=== PATIENT | female | born 1975 | race Caucasian/White ===

== ENCOUNTER 2022-10-17 06:48 | Inpatient (IN) | payer MEDICAID, SELFPAY ==
[2022-10-17] VITALS (47 sets, daily range): BP systolic 95–116; BP diastolic 66–87; PULSE 95–141; RESP 15–33; TEMP 36.7–37.1; O2SAT 92–100; BMI 18.0
--- NOTE | ~2022-10-17 | CT_ITS ---
EXAMINATION: CTA chest PE protocol DATE: 10/17/2022 11:52 INDICATION: Dyspnea. Asthma exacerbation. TECHNIQUE: Computed tomography angiography (CTA) of the chest was performed with 100 mL Omnipaque-350 intravenous contrast timed to evaluate the pulmonary arteries. Coronal maximum intensity projection 3D-reconstructions were created by the technologist. Automated exposure control and iterative reconst ruction technique were employed. The dose-length product was 143.49 mGy-cm. COMPARISON: Chest single view 10/17/2022 FINDINGS: There is mild scarring at the lung apices. There is mild emphysema. There is septal thicken ing in the lungs with an inferior predominance. There are peripheral airspace and groundglass opaciti es in all lobes. There is dependent atelectasis bilaterally. There are small pleural effusions. There is left atrial enlargement of the heart. There are coronary artery calcifications. There are calcifi cations of aortic valve. There is no pulmonary embolus. There is mediastinal and left hilar lymphaden opathy. For example, a node in the superior mediastinum measures 2.0 x 1.2 cm. There is moderate mid thoracic spondylosis. IMPRESSION: 1. Mild pulmonary edema. 2. Diffuse lung disease, likely mild pulmonary edema. 3. Small pleural effusions. 4. Mild emphysema. 5. Mediastinal and left hilar lymphadenopathy, likely reactive. Reviewed, dictated and finalized at location A. ER FEEDER
--- NOTE | ~2022-10-17 | XR_ITS ---
Portable chest x-ray Comparison: 10/10/2011 Clinical History: Dyspnea Findings: Lungs are clear, without focal consolidation or pleural effusion. Cardiomediastinal silho uette is stable. Bones and soft tissues are unremarkable. Impression: Clear lungs. Reviewed, dictated and finalized at location . ILE PROCESSING TECHNOLOGIST Impression: Clear lungs.
[2022-10-17] MEDS: ALBUTEROL SULFATE NEB 2.5 MG/3 ML INH 10 MG INHALATION (06:58)
[2022-10-17] MEDS: IPRATROPIUM BR 0.02% INH SOLN 0.5 MG/2.5 ML VIAL 1.5 MG INHALATION (06:58)
[2022-10-17] MEDS: MAGNESIUM SULF 2 GM/WATER 50ML 2 GM/50 ML BAG IVPB (07:02)
[2022-10-17] MEDS: methylPREDNISolone SOD SUCC 125 MG VIAL IV PUSH (07:02)
--- NOTE | 2022-10-17 07:17 | ED.ASTHMA ---
HPI - Asthma General Chief Complaint: Asthma Stated Complaint: Shortness of breath Time Seen by Provider: 10/17/22 07:16 Source: patient and family Mode of arrival: ambulatory Limitations: no limitations History of Present Illness HPI Narrative: 47 years old white female, presents with wheezing and coughing over the last 2 to 3 days. After working in the backyard. History of seasonal allergy and asthma, does not have any medication for asthma at home, last asthma symptoms over 9 years ago, she denies any fever, chills, nausea, vomiting, chest pain. Patient is a tobacco user Related Data Allergies Allergy/AdvReac Type Severity Reaction Status Date / Time cephalexin [Keflex] Allergy Intermediate Unknown Verified 10/17/22 06:57 Review of Systems Review of Systems: All systems reviewed & are unremarkable except as noted in HPI and below PMFSH Past Medical History Medical History (Updated 10/17/22 @ 15:42 by Nimo Sigala MD) Tobacco dependence Surgical History Surgical History (Updated 10/17/22 @ 15:34 by Stefany Webber PA-C) History of section Family History Family History (Updated 10/17/22 @ 15:35 by Stefany Webber PA-C) Mother Cervical cancer Social History Social History Social History: Surrogate medical decision maker: Justin Wilkerson, spouse. Code status: Full code. Smoking packs per day: 0.5 Smoking cigarettes per day: 10.0 Smoking status: Current every day smoker Alcohol intake: current Alcohol use details: Social alcohol use in moderation, perhaps 12 beers a month. Substance use: never Living arrangements: with family Additional living arrangements comments: Lives with spouse in [place]. 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 Exam Narrative: General appearance: Well-developed, well-nourished Skin: Normal color Head: Normocephalic, nontraumatic Eyes: Clear conjunctiva ENT: Oropharynx normal, ears normal, nose normal Neck: Supple, nontender Chest and respiratory: Currently patient on albuterol nebulizer treatment, slight diminution of air entry bilaterally, no wheezing or rhonchi Heart: Regular rate/rhythm Abdomen: Soft, nontender, no organomegaly, quiet bowel sounds Vascular: Normal peripheral pulses, normal capillary refill. Musculoskeletal: Normal range of motion, nontender back Neurologic: Alert and oriented ?3, RODEO PERFORMER is normal as tested, no gross motor deficit Course Consultations Consultation #1: Dr. Avila Date: 10/17/22 Time: 14:31 Vital Signs Vital signs: Vital Signs Temperature 36.8 C 10/17/22 06:53 Pulse Rate 139 H 10/17/22 06:53 Respiratory Rate 33 H 10/17/22 06:53 Blood Pressure 116/75 10/17/22 06:53 Pulse Oximetry 95 10/17/22 06:53 Oxygen Delivery Room Air 10/17/22 06:53 Temperature 37.1 C 10/17/22 08:55 Pulse Rate 138 H 10/17/22 08:55 Respiratory Rate 16 10/17/22 08:55 Blood Pressure 107/75 10/17/22 08:55 Pulse Oximetry 92 10/17/22 08:55 Oxygen Delivery Room Air 10/17/22 06:53 MDM - Asthma MDM Narrative Medical decision making narrative: Patient presents with asthma flare, does not have medicine at home, been working at the backyard recently which high likely triggered her asthma. She got better after receiving albuterol, Atrovent nebulizer, magnesium sulfate and Solu-Medrol. Patient will be discharged on prednisone, Symbicort and albuterol inhaler, excuse of work for 2 days. Differential Diagnosis Differential diagnosis: Likely Acute exacerbation and Acute asthmatic bronchitis Lab Data 10/17/22 10:06
--- NOTE | 2022-10-17 07:31 | PC.NURSE ---
Checked with Dr Sigala. Pt received 125 mg IV solumedrol this morning. No need for 60 mg prednisone PO at this time. Order discontinued.
[2022-10-17] MEDS: ONDANSETRON HCL ODT 4 MG TABLET PO (08:47)
--- NOTE | 2022-10-17 08:59 | PC.NURSE ---
Pt tachycardic, SpO2 92% on room air. MD aware. Delaying discharge at this time. Will continue to monitor
--- NOTE | 2022-10-17 09:17 | ECG_ITS ---
Measurements Intervals [place] Rate: 131 P: 32 [place]: 101 QRS: 63 QRSD: 96 T: 29 QT: 301 QTc: 444 Interpretive Statements SINUS OR ECTOPIC ATRIAL TACHYCARDIA WITH SHORT TX INTERVAL ATRIAL PREMATURE COMPLEX DELAYED PRECORDIAL R/S TRANSITION BORDERLINE ST-T WAVE ABNORMALITY- INF/HIGH LAT LEADS ABNORMAL ECG NO PREVIOUS ECG AVAILABLE FOR COMPARISON Electronically Signed On 10-17-2022 9:58:04 PRESENTATION SPECIALIST by Mikey Robb D.O.
--- NOTE | 2022-10-17 09:26 | PC.NURSE ---
MD aware of saturations between 88% and 91% on room air. New orders at this time, instructed not to place patient on oxygen until blood gases are obtained.
--- NOTE | 2022-10-17 09:40 | PC.NURSE ---
EKG completed, respiratory at bedside for blood gases.
[2022-10-17 09:50] LABS: Alveolar/Arterial O2 Gradient 60.6 mmHg; Base Excess ABG -4.9 mEq/l (+/-2.0); Fractional Inspired Oxygen 21 %; HCO3 ABG 17.7 mEq/l (22.0-26.0); Oxygen Saturation ABG 90.8 % (95.0-100.0); PCO2 ABG 27.2 mmHg (35.0-45.0); PO2 ABG 56.6 mmHg (80.0-100.0); Total Hemoglobin 14.6 g/dL (12.0-18.0); pH ABG 7.432 (7.350-7.450)
[2022-10-17 09:52] LABS: Modified Allen's Test Pass; Oxyhemoglobin 87.6 % THb (90.0-100.0); Site Drawn RIGHT RADIAL
--- NOTE | 2022-10-17 09:55 | PCRCNOTE ---
RT notified Nimo Sigala MD of ABG results. He stated to place patient on 2L NC. Patient is currently 92% on 2L NC. RN aware.
[2022-10-17 10:26] LABS: Alanine Aminotransferase 19 U/L (6-35); Albumin Level 4.5 g/dL (3.5-5.1); Alkaline Phosphatase 72 U/L (38-126); Anion Gap 8 mmol/L (8-16); Aspartate Amino Transferase 25 U/L (14-36); Basophils Percent Auto 0.1 % (0.2-1.2); Bilirubin,Total 0.6 mg/dL (0.2-1.3); Blood Urea Nitrogen 12 mg/dL (7-17); Calcium 8.6 mg/dL (8.4-10.2); Carbon Dioxide 20 mmol/L (22-30); Chloride 104 mmol/L (98-107); Estimated CRCL calculation 57 ml/min; Estimated Glomerular Filt Rate > 60; Glucose 215 mg/dL (65-110); Hematocrit 41.2 % (37.0-47.0); Hemoglobin 14.1 g/dL (12.0-15.0); Immature Granulocyte Absolute 0.03 K/mm3 (0.00-0.031); Immature Granulocyte Percent A 0.4 % (0-0.5); Immature Platelet Fraction Pct 7.4 % (0.9-11.2); Lymphocytes Absolute Auto 0.18 K/mm3 (0.9-3.2); Lymphocytes Percent Auto 2.4 % (18.3-44.2); Mean Corpuscular HGB Conc 34.2 g/dl (32-36); Mean Corpuscular Hemoglobin 29.5 pg (26-34); Mean Corpuscular Volume 86.2 fl (80-100); Mean Platelet Volume 11.2 fl (7.4-10.4); Monocytes Absolute Auto 0.1 K/mm3 (0.1-0.6); Monocytes Percent Auto 1.3 % (2.6-8.5); Neutrophils Absolute Auto 7.2 K/mm3 (1.3-6.7); Neutrophils Percent Auto 95.8 % (45.5-73.1); Platelet Count Result 129 k/mm3 (150-375); Potassium 3.7 mmol/L (3.4-5.0); Red Blood Count 4.78 M/mm3 (4.2-5.4); Red Cell Distribution Width 13.2 % (11.5-14.5); Sodium 132 mmol/L (137-145); White Blood Count 7.5 K/mm3 (4.5-10.0)
--- NOTE | 2022-10-17 11:00 | PC.NURSE ---
report received from Guillermina OSPINA at this time including history and physical and plan of care
[2022-10-17] MEDS: SODIUM CHLORIDE 0.9% IV 1,000 ML 999 ML IV CONT (12:07)
[2022-10-17] MEDS: FUROSEMIDE INJ 40 MG/4 ML VIAL IV PUSH (13:23)
[2022-10-17 14:20] LABS: NT Pro B Type Natriuretic Pept 13200 pg/mL (19.9-100)
--- NOTE | 2022-10-17 14:31 | ECG_ITS ---
Measurements Intervals [place] Rate: 114 P: 74 [place]: 149 QRS: 56 QRSD: 94 T: 118 QT: 331 QTc: 456 Interpretive Statements SINUS TACHYCARDIA LEFT ATRIAL ENLARGEMENT DELAYED PRECORDIAL R/S TRANSITION NONSPECIFIC ST & T-WAVE ABNORMALITY- INF/LAT LEADS BASELINE ARTIFACT- I, V3-V4 ABNORMAL ECG COMPARED TO ECG 10/17/2022 09:33:48 HEART RATE HAS DECREASED Electronically Signed On 10-17-2022 19:06:20 SIZING MACHINE OPERATOR by Mikey Robb D.O.
[2022-10-17 14:46] LABS: Partial Thromboplastin Time 25.7 SECONDS (22.3-36.8); Prothrombin Time 13.1 Seconds (11.1-14.7)
--- NOTE | 2022-10-17 15:00 | PM.IMHP ---
H&P: HPI History of Present Illness Date/Time: 10/17/22 15:00 Chief Complaint: Shortness of breath. Narrative: This is a very pleasant 47-year-old female smoker with history of childhood asthma who presented to the emergency department from home for evaluation of shortness of breath. Patient provides the following history. This past weekend she spent time doing yard work to include raking leaves and building a bonfire to burn said leaves. Later that night she was wakened from sleep with shortness of breath, wheezing, and dry cough. Shortness of breath is worse when lying supine and better when sitting upwards. An old inhaler perhaps helped her wheezing somewhat. Additionally she had some episodes of diffuse chest tightness and aching associated with shortness of breath yesterday with activity but that is not returned. She denies fever, chills, sweats, sinus congestion, runny nose, itchy and watery eyes, sore throat, paroxysmal nocturnal dyspnea, sensations of racing heart, and lower extremity edema. 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 She has no other sick contacts. No recent travel. No history of cardiac disease, dysrhythmia, or valvular heart disease. No family history of premature coronary artery disease. No history of thyroid disease. Weight has remained stable. No significant caffeine or alcohol use. She denies illicit substance use. She was afebrile on arrival to the emergency department with stable blood pressures. She has been persistently tachycardic in the 1 teens. Pertinent labs include a WBC of 7.5, platelets 129, sodium 132, potassium 3.7, BUN 12, creatinine 0.80, glucose 215, proBNP 58212, troponin 0.130. Chest CTA showed mild pulmonary edema, diffuse lung disease which is likely related to pulmonary edema, small effusions, mild emphysema, and likely reactive mediastinal and left hilar lymphadenopathy. She tested positive for COVID. In the ED she was given a nebulizer treatment, 2 g of magnesium sulfate, 125 mg IV Solu-Medrol, and 40 mg IV Lasix. She is being admitted in this setting for further workup of what appears to be new onset CHF. Review of Systems Review of Systems: Twelve systems were reviewed. Weight has remained stable. No exertional chest pain. She denies nausea and vomiting. No sweats. No syncope or near syncope. Except as documented, all other systems were reviewed and are negative. [facility] Past Medical History Medical History Tobacco dependence Surgical History Surgical History History of section Family History Family History Mother Cervical cancer Father PVD (peripheral vascular disease) Resulting in bilateral amputations Sibling DVT (deep venous thrombosis) Sister had blood clots in her legs Social History Social History Social History: Surrogate medical decision maker: Justin Wilkerson, spouse. Code status: Full code. Smoking packs per day: 0.5 Smoking cigarettes per day: 10.0 Smoking status: Current every day smoker Tobacco type: cigarettes Alcohol intake: current Drinks per week: 12 Alcohol use details: Social alcohol use in moderation, perhaps 12 beers a month. Substance use: never Lack of Transportation: No Lack of Food: Never True Current Housing: I Have Housing Concerned About Future Housing: No Difficulty Paying Gas/Electric Bills: No Difficulty Paying for Meds: No Currently Unemployed: No Education: High School Diploma/GED Difficulty w/ Childcare or Family Care: No Living arrangements: with family Additional living arrangements comments: Lives with spouse in [place]. 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
[2022-10-17 15:05] LABS: SARS-CoV-2 RNA PCR Positive
--- NOTE | 2022-10-17 16:00 | PM.CNCAR ---
Assessment and Plan Assessment and plan (1) Acute systolic CHF (congestive heart failure): Code(s): I50.21 - Acute systolic (congestive) heart failure Status: Acute Assessment and Plan: patient presents with acute CHF and COVID infection. This may be due to some pre-existing illness such as valve disease or CAD which has been it exacerbated by the physiologic stress of COVID (tachycardia, hypoxia). She may also have a COVID related problems such as myocarditis. improved with Lasix and other treatments. Agree with Furosemide 20 mg IV push b.i.d.; she does not look very volume overloaded and likely she will not need many doses. Daily BMP echo is pending; further recommendations to follow. (2) Cardiac murmur: Code(s): R01.1 - Cardiac murmur, unspecified Status: Acute Assessment and Plan: Pt has a heart murmur consistent with aortic stenosis. This would be unusual in this age range although bicuspid valve is a possibility. HoCM is less likely. Echo pending (3) Elevated troponin: Code(s): R77.8 - Other specified abnormalities of plasma proteins Status: Acute Assessment and Plan: Patient had some chest tightness, as significantly elevated troponin of up to 1.5 so far, and some inferolateral ST segment depression. Suspect this is myocardial injury secondary to physiologic stress (tachycardia, hypoxia), doubt ACS. Patient does have coronary artery calcifications some may have underlying CAD. Echo pending EKG in the morning Check lipids Consider starting a statin Possible ischemia evaluation or coronary CTA, perhaps as an outpatient, depending on pt's course. (4) COVID-19 virus infection: Code(s): U07.1 - COVID-19 Status: Acute Assessment and Plan: Patient presents with COVID infection and respiratory failure. History of asthma. Improved with oxygen, furosemide, steroids, updrafts etc.. (5) Tobacco dependence: Code(s): F17.200 - Nicotine dependence, unspecified, uncomplicated Status: Acute Assessment and Plan: Tobacco cessation is encouraged. History of Present Illness History of Present Illness Consult date/time: 10/17/22 16:00 Reason For Visit: Acute Hypoxic Respiratory Failure, CHF Narrative: Trinidad Wilkerson is a 47 female whom I was asked to see at the request of CHAS Webber for my advice and opinion regarding her new onset of CHF, in consultation. History of asthma and smoking. The patient Was exposed to a sick grandson on Friday. On Friday she started having problems with coughing, wheezing and shortness of breath. She also had some PND and orthopnea. She was having problems with soreness, aching and pressure around the lower rib area of radiating to the back and right scapula particularly with activity when she got very short of breath. Inhalers helped a little. She came to the emergency room today () and was found to be hypoxic, tachycardic and COVID positive. Her troponins were 0.130 and 1.480, proBNP 13,200, white count normal, platelet count 122K, and CT suggested CHF. She was given a nebulizer treatment, magnesium sulfate, IV steroids and Lasix 40 mg IV push and was admitted to IMU. The patient states that she has been very healthy has not seen a doctor since her mammogram at the age of 38.. She does carry firewood at times and recently she felt like her legs were weak carrying wood; she assumed that she had been inactive and out of shape over the winter. She denies any history of exertional chest pressure or tightness and denies any history of heart murmur. No hypertension, diabetes or elevated cholesterol, or family history of premature CAD, but does smoke. Review of Systems Constitutional: Constitutional: Reports difficulty sleeping (orthopnea), Reports fatigue and Denies fever(s) ENT: Denies nasal congestion Cardiovascular: Cardiovascular: Reports chest archana
--- NOTE | 2022-10-17 16:11 | ADMGEN ---
This patient, Trinidad Wilkerson, was admitted to IMU Room 207-01. Patient/family oriented to hospital policies and general routines including ID bracelet, bed and alarms, visiting hours, pain management, procedures, bathroom and other care routines, personal items, smoking policy, room service/diet, and visiting hours. Information on how to activate the Rapid Response Team has been discussed. Patient/Family are encouraged to report perceived risks to care and to ask questions if they do not understand what they are told or what they should do.
[2022-10-17] MEDS: ENOXAPARIN 60 MG/0.6 ML SYRINGE 50 MG SUB-Q (17:39)
[2022-10-17] MEDS: FUROSEMIDE INJ 40 MG/4 ML VIAL 20 MG IV PUSH (20:42)
[2022-10-17] MEDS: REMDESIVIR 200 MG/NS 250 ML 200 MG/250 ML BAG 250 MG IVPB (22:21)
[2022-10-17] MEDS: METOPROLOL TARTRATE 25 MG TABLET PO (22:21)
[2022-10-17 22:30] LABS: Hemoglobin A1C 4.7 % (<5.7)
[2022-10-18] VITALS (22 sets, daily range): BP systolic 92–121; BP diastolic 61–88; PULSE 73–98; RESP 14–22; TEMP 36.1–37.1; O2SAT 92–100
[2022-10-18 05:02] LABS: Hematocrit 40.1 % (37.0-47.0); Hemoglobin 14.2 g/dL (12.0-15.0); Immature Platelet Fraction Pct 8.9 % (0.9-11.2); Mean Corpuscular HGB Conc 35.4 g/dl (32-36); Mean Corpuscular Hemoglobin 30.3 pg (26-34); Mean Corpuscular Volume 85.5 fl (80-100); Mean Platelet Volume 11.5 fl (7.4-10.4); Platelet Count Result 139 k/mm3 (150-375); Red Blood Count 4.69 M/mm3 (4.2-5.4); Red Cell Distribution Width 13.3 % (11.5-14.5); White Blood Count 8.9 K/mm3 (4.5-10.0)
[2022-10-18 05:13] LABS: Anion Gap 6 mmol/L (8-16); Blood Urea Nitrogen 17 mg/dL (7-17); Calcium 7.7 mg/dL (8.4-10.2); Carbon Dioxide 23 mmol/L (22-30); Chloride 105 mmol/L (98-107); Cholesterol 223 mg/dL (0-200); Estimated CRCL calculation 53 ml/min; Estimated Glomerular Filt Rate > 60; Glucose 108 mg/dL (65-110); HDL Direct 52 mg/dL; Magnesium 2.4 mg/dL (1.6-2.3); Potassium 4.1 mmol/L (3.4-5.0); Sodium 134 mmol/L (137-145); Triglycerides 99 mg/dL (<150)
[2022-10-18 05:23] LABS: LDL Cholesterol Direct 127 mg/dL
[2022-10-18 05:47] LABS: INR 1.1; Prothrombin Time 13.3 Seconds (11.1-14.7)
--- NOTE | 2022-10-18 08:00 | ECG_ITS ---
Measurements Intervals [place] Rate: 84 P: -44 [place]: 137 QRS: 76 QRSD: 89 T: 229 QT: 386 QTc: 457 Interpretive Statements ECTOPIC ATRIAL RHYTHM ST-T WAVE ABNORMALITY IN ANTEROLATERAL LEADS- CONSIDER ISCHEMIA ABNORMAL ECG COMPARED TO ECG 10/17/2022 15:08:45 ECTOPIC ATRIAL RHYTHM NOW PRESENT ST-T WAVE ABNORMALITY NOW PRESENT Electronically Signed On 10-18-2022 16:18:36 OUTBOARD MOTOR TESTER by Mikey Robb D.O.
[2022-10-18 08:45] LABS: Glucose Point of Care 110 mg/dl (65-105)
[2022-10-18] MEDS: METOPROLOL TARTRATE 25 MG TABLET PO (09:37)
[2022-10-18] MEDS: ASPIRIN 81 MG CHEWABLE TABLET PO (09:38)
[2022-10-18] MEDS: DEXAMETHASONE 2 MG TABLET 6 MG PO (09:38)
[2022-10-18] MEDS: FUROSEMIDE INJ 40 MG/4 ML VIAL 20 MG IV PUSH (09:39)
--- NOTE | 2022-10-18 10:26 | PM.PNCARD ---
Progress Note: A&P Assessment and Plan (1) Acute systolic CHF (congestive heart failure): Code(s): I50.21 - Acute systolic (congestive) heart failure Status: Acute Assessment and Plan: Patient presents with acute CHF and COVID infection.? This may be due to some pre-existing illness such as valve disease or CAD which has been exacerbated by the physiologic stress of COVID (tachycardia, hypoxia).? She may also have a COVID related problems such as myocarditis. Improved with Lasix and other treatments. ?Agree with Furosemide 20 mg IV push BID; she does not look very volume overloaded and likely she will not need many doses. ?Daily BMP ?Echo is pending; further recommendations to follow. (2) NSTEMI (non-ST elevated myocardial infarction): Code(s): I21.4 - Non-ST elevation (NSTEMI) myocardial infarction Status: Acute Assessment and Plan: Troponin now up to 12. Patient without chest pain. Given degree of troponin elevation, recommended cardiac cath. Discussed the procedure details with the patient, including risks vs benefits, alternative management. Patient agrees for cath. Will perform cath today. Patient to remain NPO for procedure. Further recommendations pneding results of cath. (3) COVID-19: Code(s): U07.1 - COVID-19 Status: Acute Assessment and Plan: Management as per Hospitalist. (4) Cardiac murmur: Code(s): R01.1 - Cardiac murmur, unspecified Status: Acute Assessment and Plan: Pt has a heart murmur consistent with aortic stenosis.? This would be unusual in this age range although bicuspid valve is a possibility.? HoCM is less likely. Echo pending (5) Tobacco dependence: Code(s): F17.200 - Nicotine dependence, unspecified, uncomplicated Status: Acute Assessment and Plan: Tobacco cessation is encouraged. Subjective Date/time seen: 10/18/22 10:26 Interval history: Reason for visit: Acute congestive heart failure, NSTEMI HPI: Trinidad Wilkerson is a 47 female whom I was asked to see at the request of CHAS Webber for my advice and opinion regarding her new onset of CHF, in consultation.? History of asthma and smoking. The patient was exposed to a sick grandson on Friday.? On Friday she started having problems with coughing, wheezing and shortness of breath.? She also had some PND and orthopnea.? She was having problems with soreness, aching and pressure around the lower rib area of radiating to the back and right scapula particularly with activity when she got very short of breath.? Inhalers helped a little.? She came to the emergency room today () and was found to be hypoxic, tachycardic and COVID positive.? Her troponins were 0.130 and 1.480, proBNP 13,200, white count normal, platelet count 122K, and CT suggested CHF.? She was given a nebulizer treatment, magnesium sulfate, IV steroids and Lasix 40 mg IV push and was admitted to IMU. The patient states that she has been very healthy has not seen a doctor since her mammogram at the age of 38. She does carry firewood at times and recently she felt like her legs were weak carrying wood; she assumed that she had been inactive and out of shape over the winter.? She denies any history of exertional chest pressure or tightness and denies any history of heart murmur.? No hypertension, diabetes or elevated cholesterol, or family history of premature CAD, but does smoke. Date of service: No acute events overnight. Patient states she is feeling much better this morning. Denies any chest pain. Troponin now up to 12. Review of Systems Review of Systems: 8 point ROS obtained. Negative, unless stated in HPI. Exam Const: General: comfortable and no acute distress Orientation/consciousness: oriented to person, patient oriented x3 and No confusion Other: Pleasant middle-aged female, not in distress HENMT: Mouth: Yes moist mucous membranes Eyes: General: appearance normal, both eyes an
[2022-10-18 10:33] LABS: Alanine Aminotransferase 22 U/L (6-35)
--- NOTE | 2022-10-18 10:33 | WPDMODSED ---
Moderate Sedation Note-Pt Data Patient Data Diagnosis: NSTEMI Present Complaint: NSTEMI Procedure to be performed/Plan: Coronary angiography, LHC, +/- PCI Allergies Allergy/AdvReac Type Severity Reaction Status Date / Time cephalexin [Keflex] Allergy Intermediate Unknown Verified 10/17/22 06:57 Home Medications Medication Instructions Recorded Confirmed Type No Home Medications 10/17/22 10/17/22 History Current Medications: Active Medications Acetaminophen (Acetaminophen 325 Mg Tablet) 650 mg PO Q6H PRN PRN Reason: Mild Pain (1-3) or Fever Aspirin (Aspirin 81 Mg Chewable Tablet) 81 mg PO DAILY@0800 [facility] Last Admin: 10/18/22 09:38 Dose: 81 mg Dexamethasone (Dexamethasone 2 Mg Tablet) 6 mg PO DAILY@0800 [facility] Stop: 10/27/22 08:01 Last Admin: 10/18/22 09:38 Dose: 6 mg Dextrose (Dextrose 50% 25 Gm/50 Ml Syringe) 12.5 gm IV PUSH PRN PRN; Protocol PRN Reason: Hypoglycemia Furosemide (Furosemide Inj 40 Mg/4 Ml Vial) 20 mg IV PUSH Q12HR [facility] Last Admin: 10/18/22 09:39 Dose: 20 mg Glucagon (Glucagon For Inj 1 Mg Vial) 1 mg IM PRN PRN; Protocol PRN Reason: Hypoglycemia Glucose (Glucose Oral Gel 15 Gm Of Glucse In 37.5 Gm Tube) 15 gm PO PRN PRN; Protocol PRN Reason: Hypoglycemia Acetaminophen (Ofirmev 1,000 Mg Ivpb) 1,000 mg in 100 mls @ 400 mls/hr IVPB Q6H PRN PRN Reason: Mild Pain (1-3) or Fever Stop: 10/18/22 13:50 Last Infusion: 10/17/22 20:55 Dose: Infused Dextrose (Dextrose 5% 1,000 Ml) 1,000 mls @ 100 mls/hr IVPB PRN PRN; Protocol PRN Reason: Hypoglycemia Remdesivir () 100 mg in 250 mls @ 250 mls/hr IVPB Q24H [facility] Stop: 10/21/22 22:59 Insulin Aspart (Insulin Aspart (*Bkc) 100 Units/Ml) 2 - 5 units SUB-Q TIDWM [facility]; Protocol Last Admin: 10/18/22 09:27 Dose: Not Given Metoprolol Tartrate (Metoprolol Tartrate 25 Mg Tablet) 25 mg PO Q8HR [facility] Last Admin: 10/18/22 09:37 Dose: 25 mg Ondansetron HCl (Ondansetron Inj 4 Mg/2 Ml Vial) 4 mg IV PUSH Q4H PRN PRN Reason: Nausea Perflutren Lipid Microsphere (Perflutren Lipid Microspheres 1.5 Ml Vial Diluted To 10 Ml Total Volume) 0 ml IV PUSH ONCE PRN; Protocol PRN Reason: adequate visualization Stop: 10/19/22 15:19 Sedation/Anesthesia: No previous sedation/anesthesia problems (including family history). [facility] Past Medical History Medical History Tobacco dependence Surgical History Surgical History History of section Family History Family History Mother Cervical cancer Father PVD (peripheral vascular disease) Resulting in bilateral amputations Sibling DVT (deep venous thrombosis) Sister had blood clots in her legs Social History Social History Social History: Surrogate medical decision maker: Justin Wilkerson, spouse. Code status: Full code. Smoking packs per day: 0.5 Smoking cigarettes per day: 10.0 Smoking status: Current every day smoker Tobacco type: cigarettes Alcohol intake: current Drinks per week: 12 Alcohol use details: Social alcohol use in moderation, perhaps 12 beers a month. Substance use: never Lack of Transportation: No Lack of Food: Never True Current Housing: I Have Housing Concerned About Future Housing: No Difficulty Paying Gas/Electric Bills: No Difficulty Paying for Meds: No Currently Unemployed: No Education: High School Diploma/GED Difficulty w/ Childcare or Family Care: No Living arrangements: with family Additional living arrangements comments: Lives with spouse in [place]. 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 concerns: No Mod Sed Physical Exam Physical Exam Pre Procedural Exam: Normal: Appearance, Heart Rate, Heart Rhythm, Neuro Exam, Abdomen, Extremities
--- NOTE | 2022-10-18 10:35 | WPDCARDPROC ---
Cardiac Cath Procedure Note Date of procedure:: 10/18/22 Performing physician:: CATHETERIZATION LABORATORY REPORT Procedure Date: 10/18/2022 Meter Calibrator: Manjeet John M.D., [facility]? Referring Physician: Dr. John ? Anesthesia: Versed and Fentanyl were ordered and given in my presence at 11:05, procedure ended at 11:36. Supervision of nurse monitored moderate sedation with Versed and Fentanyl was provided for 31 minutes. Total of Versed 0.5mg and Fentanyl 25mcg were administered by the Press Tender [employer] Goods RN Augustina Bynum. Pre-op Diagnosis: Coronary artery disease Post-op Diagnosis: Nonobstructive coronary arteries Procedure(s): 1. Moderate sedation 2. Ultrasound-guided access of the right common femoral artery 3. Coronary angiography 4. Angioseal closure of the right common femoral artery Access Site: Right common femoral artery Brief History and Clinical Indications: Patient is a 47-year-old female who is referred for [facility] for NSTEMI All risks, benefits and alternatives to left heart catheterization with or without percutaneous coronary intervention was discussed at length with the patient. Risk of complications including but not limited to bleeding, infection, arrhythmia, stroke, worsening kidney function, blood loss, groin hematoma, limb loss, emergency coronary artery bypass grafting, and even were discussed with the patient and all questions were answered. The patient understood and wished to proceed. Time out called, patient name, date of , medical record number, allergies, procedure performed, identify Meter Calibrator, patient and staff member concurred with accurate data, procedure carried on. Findings: LEFT HEART CATHETERIZATION FINDINGS: 1. Left main: The left main coronary artery is widely patent without any significant obstructive disease. 2. Left anterior descending: The ostium of the LAD has very mild 10-20% disease. Otherwise, rest of the LAD and the diagonal branches have mild luminal irregularities without any significant obstructive angiographic disease. 3. Left circumflex: The left circumflex artery and the main marginal branches have mild luminal irregularities without any significant obstructive angiographic disease. 4. Right coronary artery: The RCA has mild luminal irregularities without any significant obstructive angiographic disease. The RCA is the dominant vessel. Catheter-induced spasm noted of the proximal RCA - this resolved after catheter was pulled back. 5. Left ventricle: Unable to cross the aortic valve. Description of Procedure: Informed consent signed and placed in the chart. Patient transferred to laborer yard room. Prepped and aped in usual sterile fashion. 2% lidocaine in right groin area. Micropuncture needle used to access right common femoral artery with Seldinger technique under fluoroscopic guidance. J wire advanced, micropuncture cannula placed. Right iliofemoral angiogram performed, access confirmed and micropuncture cannula exchanged for 5-FR sheath. 5F FL4 diagnostic catheter engaged Left Main Coronary Artery. 5F FR4 diagnostic catheter engaged Right Coronary Artery. Multiple orthogonal angiogram obtained and reviewed. Attempted to cross the aortic valve with a 5F Pigtail diagnostic catheter and 5F FR4 diagnostic catheter, unable to cross. Hemostasis was achieved by 6F Angioseal. ? Assessment: Nonobstructive coronary arteries Post Operative Condition: Stable No significant blood loss Disposition: Floor Plan: The patient will be monitored in the recovery area. The above findings were discussed with the referring physician. Continue aggressive medical therapy and risk factor modification. ? Manjeet John M.D. Interventional Cardiology
--- NOTE | 2022-10-18 11:55 | PM.IMPN ---
Progress Note: A&P Assessment and Plan (1) Acute respiratory failure with hypoxia: Code(s): J96.01 - Acute respiratory failure with hypoxia Status: Acute (2) Congestive heart failure: Code(s): I50.9 - Heart failure, unspecified Status: Acute Assessment and Plan: Echo pending. (3) Cardiac murmur: Code(s): R01.1 - Cardiac murmur, unspecified Status: Acute (4) COVID-19: Code(s): U07.1 - COVID-19 Status: Acute (5) Elevated troponin: Code(s): R77.8 - Other specified abnormalities of plasma proteins Status: Acute Assessment and Plan: Going to labourers (6) Tobacco dependence: Code(s): F17.200 - Nicotine dependence, unspecified, uncomplicated Status: Acute (7) Hyperglycemia: Code(s): R73.9 - Hyperglycemia, unspecified Status: Acute Subjective Date/time seen: 10/18/22 11:55 Troponin elevated. Going to labourers today Exam Narrative: General: Thin, nontoxic-appearing female sitting up in bed. Weight: 48.6 kg. BMI: 17.3. HEENT: Normocephalic, atraumatic. PERRL, EOMI. Sclera anicteric. Oral mucosa moist. Oropharynx clear. Neck: Supple. No significant JVD. Bilateral bruits versus more likely transmitted murmur. Respiratory: Respirations are nonlabored. She is speaking in full sentences. Diminished lung sounds at the bases with crackles. Cardiovascular: Tachycardic with S1-S2. 3/6 systolic murmur at the right upper sternal border to the carotids. Gastrointestinal: Abdomen is soft, flat, nontender, and nondistended with positive bowel sounds. Skin: Warm and dry. No rash or lesions on limited exam. Extremities: No cyanosis, clubbing, or edema. Radial and pedal pulses intact. Neurological: Alert. Cranial nerves 2-12 are grossly intact. No gross focal deficits to casual conversation. Psychiatric: Pleasant and cooperative with normal mood and affect. Judgment and insight intact. Objective Data Vital Signs Vital Signs: Vital Signs - 24 hr 10/17/22 11:58 10/17/22 12:08 10/17/22 12:27 Temperature Pulse Rate 118 H 120 H 122 H Respiratory Rate 21 H Blood Pressure Pulse Oximetry 98 97 96 Oxygen Delivery Oxygen Flow Rate 10/17/22 12:30 10/17/22 12:45 10/17/22 13:00 Temperature Pulse Rate 124 H 129 H 131 H Respiratory Rate Blood Pressure Pulse Oximetry 97 94 92 Oxygen Delivery Oxygen Flow Rate 10/17/22 13:27 10/17/22 13:30 10/17/22 13:31 Temperature Pulse Rate 129 H 130 H 127 H Respiratory Rate Blood Pressure 97/83 L Pulse Oximetry 93 94 93 Oxygen Delivery Oxygen Flow Rate 10/17/22 13:48 10/17/22 14:10 10/17/22 14:22 Temperature Pulse Rate 119 H 118 H 118 H Respiratory Rate 20 Blood Pressure Pulse Oximetry 94 96 94 Oxygen Delivery Oxygen Flow Rate 10/17/22 14:43 10/17/22 14:45 10/17/22 15:00 Temperature Pulse Rate 116 H 116 H 110 H Respiratory Rate 21 H 20 19 Blood Pressure Pulse Oximetry 96 99 98 Oxygen Delivery Oxygen Flow Rate 10/17/22 15:01 10/17/22 15:15 10/17/22 15:30 Temperature Pulse Rate 115 H 128 H 122 H Respiratory Rate 26 H 19 24 H Blood Pressure Pulse Oximetry 98 97 100 Oxygen Delivery Oxygen Flow Rate 10/17/22 15:31 10/17/22 16:07 10/17/22 18:00 Temperature Pulse Rate 122 H 112 H Respiratory Rate 23 H Blood Pressure 105/87 Pulse Oximetry 100 100 Oxygen Delivery Nasal Cannula Oxygen Flow Rate 2 10/17/22 16:00 10/17/22 20:00 10/17/22 20:00 Temperature 98.0 F Pulse Rate 131 H 114 H 111 H Respiratory Rate 20 Blood Pressure 95/67 L Pulse Oximetry 98 Oxygen Delivery Oxygen Flow Rate 10/17/22 20:00 10/17/22 22:00 10/17/22 22:21 Temperature Pulse Rate 111 H 95 96 Respiratory Rate 20 Blood Pressure Pulse Oximetry 98 Oxygen Delivery Nasal Cannula Oxygen Flow Rate 4 10/18/22 00:00 10/18/22 00:00 10/18/22 00:00 [place]
[2022-10-18] MEDS: SODIUM CHLORIDE 0.9% IV 1,000 ML 125 ML IV CONT (13:00)
[2022-10-18 13:57] LABS: Glucose Point of Care 141 mg/dl (65-105)
--- NOTE | 2022-10-18 15:19 | ECHO_ITS ---
Patient Info Name: Trinidad Wilkerson Age: 47 years : 1975 Gender: Female Ht: 66 in Wt: 107 lbs BSA: 1.49 m2 HR: 86 bpm BP: 95 / 61 mmHg Heart Rhythm: Sinus Rhythm Technical Quality: Fair Exam Date: 10/18/2022 10:32 AM Exam Location: [facility] Pulmonary Patient Status: Inpatient Admit Date: 10/17/2022 Staff Ordering Physician: Stefany Webber PA-C Garment Tag Stringer: Andreina Castillo RDCS Attending Provider: Roselyn Zamorano DO Referring Physician: Lawanda GAN; Exam Type: CA echo doppler color flow Study Info Indications - USB murmur, tachycardfia, pulmonary edema Complete two-dimensional, color flow and Doppler transthoracic echocardiogram is performed. Summary 1. Complete two-dimensional, color flow and Doppler transthoracic echocardiogram is performed. 2. Left ventricular chamber dimension is normal. 3. Left ventricular systolic function is moderately reduced, estimated at 35-40%. 4. The left ventricular diastolic function is grade III diastolic dysfunction. 5. Right ventricular systolic function is normal. 6. The aortic valve is not well visualized. 7. There is moderate aortic valve calcification. 8. There is severe aortic valve stenosis with a peak velocity of 471 cm/s, mean gradient of 57 mmHg, and aortic valve area of 0.4 cm2. 9. The mitral valve annulus is mildly calcified. 10. The mitral valve has thickened leaflets. 11. There is moderate mitral valve regurgitation. 12. Normal inferior vena cava with >50% collapse upon inspiration consistent with normal right atrial pressure, 3 mmHg. Left Ventricle Left ventricular chamber dimension is normal. Left ventricular systolic function is moderately reduced, estimated at 35-40%. There is no increased left ventricular wall thickness. The left ventricular diastolic function is grade III diastolic dysfunction. Right Ventricle Right ventricular chamber dimension is normal. Right ventricular systolic function is normal. Left Atria Left atrial chamber dimension is normal. Right Atria Right atrial chamber dimension is normal. Atrial Septum Intact interatrial septum visualized by color flow imaging. Aortic Valve The aortic valve is not well visualized. There is severe aortic valve stenosis with a peak velocity of 471 cm/s, mean gradient of 57 mmHg, and aortic valve area of 0.4 cm2. There is no aortic valve regurgitation. There is moderate aortic valve calcification. Pulmonic Valve The pulmonic valve is not well visualized. Mitral Valve The mitral valve has thickened leaflets. There is moderate mitral valve regurgitation. The mitral valve annulus is mildly calcified. Tricuspid Valve There is trace tricuspid valve regurgitation. Pericardium/Pleural Left pleural effusion present. There is small pericardial effusion. Inferior Vena Cava Normal inferior vena cava with >50% collapse upon inspiration consistent with normal right atrial pressure, 3 mmHg. Aorta The aortic root size at the sinus of Valsalva is normal. Left Ventricular Outflow Tract Name Value Normal LVOT 2D LVOT Diameter 2.0 cm LVOT Doppler LVOT Pea
[2022-10-18 17:31] LABS: Glucose Point of Care 214 mg/dl (65-105)
--- NOTE | 2022-10-18 17:52 | SUR.PHASEII ---
Addendum entered by Augustina Bynum RN 10/18/22 17:54: No new orders were given after discussion with Dr. John. Original Note: 2403 Dr. John informed that patient's right pedal pulse was now difficult to palpate and faint on doppler and b/l feet cold but legs warm and cap refill delayed. Patient denied numbness or pain to right left. Dr. John reports she had weak pulses prior to cath and came to examine patient around approximately 1316.
[2022-10-18] MEDS: EMPAGLIFLOZIN 10 MG TABLET PO (18:23)
[2022-10-18] MEDS: REMDESIVIR 100 MG/NS 250 ML 100 MG/250 ML BAG 250 MG IVPB (21:57)
[2022-10-18 22:16] LABS: Glucose Point of Care 130 mg/dl (65-105)
[2022-10-19] VITALS (9 sets, daily range): BP systolic 107–130; BP diastolic 65–76; PULSE 72–89; RESP 16–20; TEMP 36.3–36.9; O2SAT 92–99
[2022-10-19 04:52] LABS: INR 1.1; Prothrombin Time 13.3 Seconds (11.1-14.7)
[2022-10-19 04:55] LABS: Alanine Aminotransferase 20 U/L (6-35); Anion Gap 7 mmol/L (8-16); Blood Urea Nitrogen 22 mg/dL (7-17); Calcium 7.6 mg/dL (8.4-10.2); Carbon Dioxide 18 mmol/L (22-30); Chloride 105 mmol/L (98-107); Estimated CRCL calculation 67 ml/min; Estimated Glomerular Filt Rate > 60; Glucose 91 mg/dL (65-110); Sodium 130 mmol/L (137-145)
[2022-10-19 07:54] LABS: Glucose Point of Care 104 mg/dl (65-105)
[2022-10-19] MEDS: ASPIRIN 81 MG CHEWABLE TABLET PO (08:16)
[2022-10-19] MEDS: DEXAMETHASONE 2 MG TABLET 6 MG PO (08:18)
[2022-10-19] MEDS: METOPROLOL SUCCINATE EXT REL 25 MG TABCR PO (08:18)
[2022-10-19] MEDS: EMPAGLIFLOZIN 10 MG TABLET PO (08:19)
--- NOTE | 2022-10-19 10:59 | PM.DS ---
DS: Admitting Diagnosis Discharge Date October 19, 2022 Admitting Diagnosis Hypoxic respiratory failure DS: Discharge Diagnosis Discharge Diagnosis (1) Acute respiratory failure with hypoxia: Code(s): J96.01 - Acute respiratory failure with hypoxia Status: Acute (2) Congestive heart failure: Code(s): I50.9 - Heart failure, unspecified Status: Acute Assessment and Plan: Echo pending. (3) Cardiac murmur: Code(s): R01.1 - Cardiac murmur, unspecified Status: Acute (4) COVID-19: Code(s): U07.1 - COVID-19 Status: Acute (5) Elevated troponin: Code(s): R77.8 - Other specified abnormalities of plasma proteins Status: Acute Assessment and Plan: Going to cardiac cath technician (6) Tobacco dependence: Code(s): F17.200 - Nicotine dependence, unspecified, uncomplicated Status: Acute (7) Hyperglycemia: Code(s): R73.9 - Hyperglycemia, unspecified Status: Acute DS: Summary Hospital Course Hospital Course: Patient came for shortness of breast found have COVID and also upon evaluation elevated troponin. Patient cardiac cath technician denies any coronary disease however she has significant reduced ejection fraction. Patient was given a couple doses of diuretics however her breathing is much improved. Will not need any treatment for COVID on discharge. She will need a follow-up with Cardiology. Beta-dalton and Jardiance started. Time Spent with Patient Time attestation: Total time spent providing and/or coordinating discharge services: Exam Narrative: General: Thin, nontoxic-appearing female sitting up in bed. Weight: 48.6 kg. BMI: 17.3. HEENT: Normocephalic, atraumatic. PERRL, EOMI. Sclera anicteric. Oral mucosa moist. Oropharynx clear. Neck: Supple. No significant JVD. Bilateral bruits versus more likely transmitted murmur. Respiratory: Respirations are nonlabored. She is speaking in full sentences. Diminished lung sounds at the bases with crackles. Cardiovascular: Tachycardic with S1-S2. 3/6 systolic murmur at the right upper sternal border to the carotids. Gastrointestinal: Abdomen is soft, flat, nontender, and nondistended with positive bowel sounds. Skin: Warm and dry. No rash or lesions on limited exam. Extremities: No cyanosis, clubbing, or edema. Radial and pedal pulses intact. Neurological: Alert. Cranial nerves 2-12 are grossly intact. No gross focal deficits to casual conversation. Psychiatric: Pleasant and cooperative with normal mood and affect. Judgment and insight intact. DS: Data Data Completed and Pending Labs on day of discharge: Labs from last 24 hours 10/19/22 10/19/22 10/19/22 07:48 04:18 04:18 PT 13.3 INR 1.1 Sodium 130 L Potassium 4.0 Chloride 105 Carbon Dioxide 18 L Anion Gap 7 L BUN 22 H Creatinine 0.70 Estim Creat Clear Calc 67 Estimated GFR > 60 Glucose 91 POC Capillary Glucose 104 Calcium 7.6 L ALT 20 10/18/22 10/18/22 10/18/22 22:09 17:22 13:50 PT INR Sodium Potassium Chloride Carbon Dioxide Anion Gap BUN Creatinine Estim Creat Clear Calc Estimated GFR Glucose POC Capillary Glucose 130 H 214 H 141 H Calcium ALT Discharge Plan Discharge Attending physician on discharge: Aftab Bojorquez Consulting providers: Zaina Avila Discharging Clinician: Aftab Bojorquez Patient Disposition: Home, Self-Care Activity: no preference Diet: as tolerated Patient Instructions: Antibiotic Form, Moderate Sedation (DC), Angio-Seal (DC), Left Heart Catheterization (DC) Stand Alone Forms: General Discharge Information Follow-up/Referrals: Juan Carlos Kwok MD [Primary Care Provider] - Zaina Avila MD [Physician] - Discharge Medications: New metoprolol succinate [Toprol XL] 25 mg Tablet Extended Release 24 Hr 25 mg PO QAM 30 Days Qty: 30 0RF Jardiance 10 mg Table
== END 2022-10-19 12:32 | disposition home or self-care (01) | DRG 192 ==
LOC: ANHED 13:23 → ANHIMU 15:42
PROVIDERS: Internal Medicine; Internal Medicine Cardiovascular Disease; Physician Assistant; Admitting Provider Student in an Organized Health Care Education/Training Program; Emergency Provider Emergency Medicine; PCP Emergency Medicine; Visit Provider Chiropractor
PROC: 4A023N7 Measurement of Cardiac Sampling and Pressure, Left Heart, Percutaneous Approach (ICD-10-PCS; CPT 93454; principal; 2022-10-18 10:15)
PROC: 4A023N7 Measurement of Cardiac Sampling and Pressure, Left Heart, Percutaneous Approach (ICD-10-PCS; 2022-10-18 10:15)
DX: I50.21 Acute systolic (congestive) heart failure (principal); J96.01 Acute respiratory failure with hypoxia; U07.1 COVID-19; I35.0 Nonrheumatic aortic (valve) stenosis; F17.210 Nicotine dependence, cigarettes, uncomplicated; J45.909 Unspecified asthma, uncomplicated; R01.1 Cardiac murmur, unspecified; R73.9 Hyperglycemia, unspecified; R77.8 Other specified abnormalities of plasma proteins
CPT/HCPCS: 36415; 36600; 71045; 71275; 80048; 80053; 80061; 81025; 82805; 82948; 83036; 83735; 83880; 84443; 84460; 84484; 85025; 85027; 85055; 85610; 85730; 93005; 93306; 93454; 94640; 96361; 96365; 96375; 99285; A9270; C1760; C1887; C1894; G0269; J0131; J0248; J1644; J1650; J1940; J2250; J2370; J2930; J3010; J3475; J7030; J7040; J8540; Q9967; U0003; U0005

== ENCOUNTER 2023-02-14 09:27 | Outpatient (CLI) | payer OTHER, SELFPAY ==
[2023-02-14 18:33] LABS: Basophils Absolute Auto 0.1 K/mm3 (0.0-0.1); Basophils Percent Auto 0.9 % (0.2-1.2); Eosinophils Absolute Auto 0.1 K/mm3 (0-0.3); Eosinophils Percent Auto 1.1 % (0-4.4); Hematocrit 41.2 % (37.0-47.0); Hemoglobin 14.1 g/dL (12.0-15.0); Immature Granulocyte Absolute 0.02 K/mm3 (0.00-0.031); Immature Granulocyte Percent A 0.2 % (0-0.5); Lymphocytes Percent Auto 23.4 % (18.3-44.2); Mean Corpuscular HGB Conc 34.2 g/dl (32-36); Mean Corpuscular Hemoglobin 29.7 pg (26-34); Mean Corpuscular Volume 86.9 fl (80-100); Mean Platelet Volume 11.2 fl (7.4-10.4); Monocytes Absolute Auto 0.6 K/mm3 (0.1-0.6); Monocytes Percent Auto 6.8 % (2.6-8.5); Neutrophils Absolute Auto 6.1 K/mm3 (1.3-6.7); Neutrophils Percent Auto 67.6 % (45.5-73.1); Platelet Count Result 170 k/mm3 (150-375); Red Blood Count 4.74 M/mm3 (4.2-5.4); Red Cell Distribution Width 12.9 % (11.5-14.5)
[2023-02-14 18:34] LABS: Alanine Aminotransferase 37 U/L (6-35); Albumin Level 4.4 g/dL (3.5-5.1); Alkaline Phosphatase 74 U/L (38-126); Anion Gap 8 mmol/L (8-16); Aspartate Amino Transferase 31 U/L (14-36); Bilirubin,Total 0.9 mg/dL (0.2-1.3); Blood Urea Nitrogen 12 mg/dL (7-17); Calcium 9.4 mg/dL (8.4-10.2); Carbon Dioxide 25 mmol/L (22-30); Chloride 106 mmol/L (98-107); Estimated Glomerular Filt Rate > 60; Glucose 96 mg/dL (65-110); Sodium 139 mmol/L (137-145)
[2023-02-14 18:55] LABS: Hemoglobin A1C 4.8 % (<5.7)
== END 2023-02-14 09:28 | disposition home or self-care (01) ==
LOC: ANHGOSHLAB 09:28
PROVIDERS: PCP Family Medicine; Visit Provider Nurse Practitioner Family
DX: Z00.00 Encounter for general adult medical examination without abnormal findings (principal); I10 Essential (primary) hypertension; Z13.1 Encounter for screening for diabetes mellitus
CPT/HCPCS: 36415; 80053; 83036; 85025

== ENCOUNTER 2023-04-02 09:28 | Outpatient (CLI) | payer OTHER, SELFPAY ==
--- NOTE | ~2023-04-02 | XR_ITS ---
XR chest 2V 04/02/2023 09:49 Indication: Shortness of breath and cough Procedure: PA and lateral views of the chest Comparison: Comparison to multiple prior studies sequentially, with oldest reviewed study dated 10/02. Findings: Heart size normal. There is a moderate left pleural effusion. Left basilar atelectasis. Sma ll right pleural effusion. No acute osseous abnormality. Impression: 1: Bilateral pleural effusions, left greater than right. Bibasilar atelectasis. Reviewed, dictated and finalized at location B. Impression: 1: Bilateral pleural effusions, left greater than right. Bibasilar atelectasis.
== END 2023-04-02 09:29 | disposition home or self-care (01) ==
LOC: ANHIMG 09:32
PROVIDERS: PCP Family Medicine; Visit Provider Family Medicine
DX: R06.02 Shortness of breath (principal); J90 Pleural effusion, not elsewhere classified; J98.11 Atelectasis
CPT/HCPCS: 71046

== ENCOUNTER 2023-05-20 08:23 | Outpatient (CLI) | payer OTHER, SELFPAY ==
[2023-05-20 09:12] LABS: Anion Gap 8 mmol/L (8-16); Blood Urea Nitrogen 13 mg/dL (7-17); Calcium 9.4 mg/dL (8.4-10.2); Carbon Dioxide 24 mmol/L (22-30); Chloride 105 mmol/L (98-107); Estimated Glomerular Filt Rate > 60; Glucose 107 mg/dL (65-110); Potassium 5.4 mmol/L (3.4-5.0); Sodium 137 mmol/L (137-145)
== END 2023-05-20 08:24 | disposition home or self-care (01) ==
LOC: ANHLAB 08:27
PROVIDERS: PCP Family Medicine
DX: I34.0 Nonrheumatic mitral (valve) insufficiency (principal)
CPT/HCPCS: 36415; 80048

== ENCOUNTER 2024-07-16 14:13 | Outpatient (CLI) | payer OTHER, SELFPAY ==
[2024-07-16 19:08] LABS: Basophils Absolute Auto 0.1 K/mm3 (0.0-0.1); Basophils Percent Auto 0.8 % (0.2-1.2); Eosinophils Absolute Auto 0.2 K/mm3 (0-0.3); Eosinophils Percent Auto 2.2 % (0-4.4); Hemoglobin 13.8 g/dL (12.0-15.0); Immature Granulocyte Absolute 0.01 K/mm3 (0.00-0.031); Immature Granulocyte Percent A 0.1 % (0-0.5); Lymphocytes Absolute Auto 2.23 K/mm3 (0.9-3.2); Mean Corpuscular HGB Conc 34.5 g/dl (32-36); Mean Corpuscular Hemoglobin 29.9 pg (26-34); Mean Corpuscular Volume 86.8 fl (80-100); Mean Platelet Volume 11.4 fl (7.4-10.4); Monocytes Absolute Auto 0.6 K/mm3 (0.1-0.6); Monocytes Percent Auto 8.3 % (2.6-8.5); Neutrophils Absolute Auto 4.6 K/mm3 (1.3-6.7); Neutrophils Percent Auto 59.6 % (45.5-73.1); Platelet Count Result 203 k/mm3 (150-375); Red Blood Count 4.61 M/mm3 (4.2-5.4); Red Cell Distribution Width 13.2 % (11.5-14.5); White Blood Count 7.7 K/mm3 (4.5-10.0)
[2024-07-16 19:18] LABS: Alanine Aminotransferase 26 U/L (6-35); Albumin Level 4.4 g/dL (3.5-5.1); Alkaline Phosphatase 68 U/L (38-126); Anion Gap 3 mmol/L (4-12); Aspartate Amino Transferase 48 U/L (14-36); Bilirubin,Total 0.6 mg/dL (0.2-1.3); Blood Urea Nitrogen 17 mg/dL (7-17); Calcium 8.8 mg/dL (8.4-10.2); Carbon Dioxide 28 mmol/L (22-30); Chloride 108 mmol/L (98-107); Cholesterol 197 mg/dL (0-200); Estimated Glomerular Filt Rate > 60; Glucose 89 mg/dL (65-110); HDL Direct 67 mg/dL; Potassium 5.2 mmol/L (3.4-5.0); Sodium 139 mmol/L (137-145); Triglycerides 137 mg/dL (<150)
[2024-07-16 19:30] LABS: LDL Cholesterol Direct 97 mg/dL
[2024-07-16 19:42] LABS: Vitamin D 25 Hydroxy 16.4 ng/mL
== END 2024-07-16 14:14 | disposition home or self-care (01) ==
LOC: ANHGOSHLAB 14:14
PROVIDERS: PCP Family Medicine; Visit Provider Nurse Practitioner Family
DX: E78.5 Hyperlipidemia, unspecified (principal); E55.9 Vitamin D deficiency, unspecified; I10 Essential (primary) hypertension; E03.9 Hypothyroidism, unspecified
CPT/HCPCS: 36415; 80053; 80061; 82306; 84443; 85025

== ENCOUNTER 2025-03-03 08:54 | Outpatient (CLI) | payer OTHER, SELFPAY ==
--- NOTE | ~2025-03-03 | MM_ITS ---
EXAMINATION: MM screening robert BI w neyda HISTORY: Screening TECHNIQUE: Craniocaudal and mediolateral oblique 3-D tomosynthesis images were obtained and synthetic 2-D images were generated. CAD analysis was submitted and interpreted. COMPARISON: 02/12/2018. BREAST PARENCHYMAL COMPOSITION: The breasts are heterogeneously dense, which may obscure small masses . FINDINGS: There is no evidence of suspicious mass, calcification, or architectural distortion to sug gest malignancy in either breast. IMPRESSION: 1. No mammographic evidence of malignancy. 2. Recommend routine screening mammography in one year. BI-RADS Category 1: Negative Reviewed, dictated and finalized at location B.
--- OUTSIDE RECORDS SUMMARY | 2025-03-03 08:58 | XMS_ITS | Referral Summary ---
Author Organization [facility] [address] [facility] [address] Address [address] [place] [address] Care Team Providers Care Surface Room Shop Optician Name Role Phone Elida Novoa MD Primary Care Provider Manjeet John MD Unavailable [phone] Encounters Date Type Department Care Team Description 12/06/2024 Anticoagulation Visit [facility] Cardiology [address] [place] [address] Deena Valiente RN 12/06/2024 9:15 AM CDT Lab [address] [address] History of mechanical aortic valve replacement from Last 3 Months Allergies Active Allergy Reactions Criticality Noted Date Comments Cephalexin Other (See comments) Low 04/25/2023 Yeast infection Medications atorvastatin (LIPITOR) 10 mg tablet Take 1 tablet (10 mg total) by mouth nightly at bedtime 04/01/20 23 Active aspirin 81 mg enteric coated tablet Take 1 tablet (81 mg total) by mouth daily Active cetirizine (ZyrTEC) 10 mg tablet Take 1 tablet (10 mg total) by mouth daily Active albuterol HFA (PROVENTIL HFA,VENTOLIN HFA,PROAIR HFA) 90 mcg/actuation inhaler Inhale 1 puff every 4 (four) hours as needed for shortness of breath or wheezing 04/09/20 23 Active cholecalcifero l (VITAMIN D-3) 50,000 unit capsule Take 1 capsule (50,000 Units total) by mouth once a week 07/22/20 24 Active warfarin (COUMADIN) 4 mg tablet TAKE TWO TABLETS BY MOUTH THREE DAYS A WEEK AND TWO AND ONE-HALF TABLETS THE OTHER FOUR DAYS OF THE WEEK OR DIRECTED BY PHYSICIAN 64 tablet 02/16/20 25 Active warfarin (COUMADIN) 4 mg tablet TAKE 2 TABLETS BY MOUTH DAILY 3 DAYS A WEEK AND TAKE 2.5 TABLETS DAILY THE OTHER 4 DAYS OF THE WEEK OR DIRECTED BY PHYSICIAN. 64 tablet 01/20/20 25 025 Discontinued Active Problems Problem Noted Date Diagnosed Date History of mechanical aortic valve replacement 1 08/20/2022 S/P mitral valve repair 06/20/2023 Aortic stenosis, severe 06/02/2023 Mitral valve insufficiency 05/15/2023 Nonischemic cardiomyopathy 04/25/2023 Aortic valve stenosis 04/25/2023 Social History Tobacco Use Types Packs/Day Years Used Date Smoking Tobacco: Every Day Cigarettes Smokeless Tobacco: Never Tobacco Cessation:Ready to Q uit: Not Asked; Counseling Given: Not Answered Comments:Smoking cessation booklet provided [facility] Answer Date Recorded In the past 12 months has Refinder by [employer], gas, oil, or water [employer] threatened to shut off services in your home? No 06/03/2023 Social Connection and Isolat ion Panel [NHANES] Answer Date Recorded In a typical week, how many times do you talk on the phone with family, friends, or neighbors? More than three times a week 06/03/2023 How often do you get togethe r with friends or relatives? More than three times a week 06/03/2023 How often do you attend [facility] or spiritism services? More than 4 times per year 06/03/2023 Do you belong to any clubs o r organizations such as sabianist groups, unions, fraternal or athletic groups, or school groups? No 06/03/2023 How often do you attend meet ings of the clubs or organizations you belong to? Never 06/03/2023 Are you , , di vorced, , never , or living with a partner? 06/03/2023 AUDIT-C Answer Date Recorded Q1: How often do you have a drink containing alcohol? 4 or more times a week 07/21/2023 Q2: How many drinks containi ng alcohol do you have on a typical day when you are drinking? 3 or 4 Q3: How often do you have si x or more drinks on one occasion? Never 07/21/2023 Overall Financial Resource Strain (CARDIA) Answe r Date Recorded How hard is it for you to pa y for the very basics like food, housing, medical care, and heating? Somewhat hard 06/03/2023 Hunger Vital Sign Answer Date Recorded Within the past 12 months, y ou worried that your food would run out before you got the money to buy more. Never true 06/03/20 23 Within the past 12 months, t he food you bought just didn't last and you didn't have money to get more. Never true 06/03/2023 PRAPARE - Transportation Answer Date Re corded In the past 12 months, has l ack of transportation kept you from medical appointments or from getting medications? No 05/12 In the past 12 months, has l ack of transportation kept you from meetings, work, or from getting things needed for daily living? No 06/03/2023 Housing Stability Vital Sign Answer Sidney e Recorded In the last 12 months, was t here a time when you were not able to pay the mortgage or rent on time? No 06/03/2023 In the last 12 months, how many places have you lived? 1 06/03/2023 In the last 12 months, was t here a time when you did not have a steady place to sleep or slept in a longterm (including now)? No 06/03/2023 Personal Safety Answer Date Recorded Have you ever been in or are you currently in a harmful physical or emotional relationship or is someone making you feel afraid or unsafe? Denies 07/21/2023 Comments Unknown Sex and Gender Information Value Date Recorded Sex Assigned at Not on file Legal Sex Female 9:23 PM SOUND TECHNICIAN SUPERVISOR Gender Identity Not on file Sexual Orientation Not on file Last Filed Vital Signs Vital Sign Reading Time Taken Comments Blood Pressure 124/60 10/12/2024 10:02 AM SOUND TECHNICIAN SUPERVISOR Pulse 94 10/12/2024 10:02 AM SOUND TECHNICIAN SUPERVISOR Temperature 36.8 C (98.3 F) 07/21/2023 7:34 AM SOUND TECHNICIAN SUPERVISOR Respiratory Rate 16 09/30/2024 11:57 AM SOUND TECHNICIAN SUPERVISOR Oxygen Saturation 98% 10/12/2024 10:02 AM SOUND TECHNICIAN SUPERVISOR Inhaled Oxygen Concentration - - Weight 53.5 kg (118 lb) 10/12/2024 10:02 AM SOUND TECHNICIAN SUPERVISOR Height 165.1 cm (5' 5) 10/12/2024 10:02 AM SOUND TECHNICIAN SUPERVISOR Body Mass Index 19.64 10/12/2024 10:02 AM SOUND TECHNICIAN SUPERVISOR Plan of Treatment Not on file Medical Devices Implanted Type Area Asset Accountant Device Identifier Shelf Expiration Date Model / Serial / Lot [employer] Brianna-Rita eddy-Par[employer] Imr Etlogix 28mm 3d Reduced Curvature [id number] - [id number] - [id number] Implanted:Qty: 1 on 06/02/2023 by Jamari Ellis MD at [facility] N/A: Heart [employer] [id number] 03/15/2028 [id number] / [id number] / [employer] [place] Flexcuff 19mm 17.8mm 1 Digit Gradient Mechanical Leaflet [id number] - [id number] - [id number] Implanted:Qty: 1 on 06/02/2023 by Jamari Ellis MD at [facility] N/A: Heart [employer] [id number] 12/11/2027 [id number] / [id number] / Procedures Procedure Name Priority Date/Time Associated Diagnosis Comments PROTIME-INR Routine 12/06/2024 9:21 AM CDT History of mechanical aortic valve replacement from Last 3 Months Results * (ABNORMAL) Protime-INR (12/06/2024 9:21 AM CDT) PT 31.6(H) 9.7 - 13.0 sec JOSHUA LOPEZ ([facility]END[facility]) INR 2.86(H) 0.90 - 1.20 JOSHUA LOPEZ (WENDY) Comment: Interpretive data Oral anticoagulant therapeutic ranges: Venous thromboembolism prophylaxis or treatment: 2.0-3.0 CARDIOLOGY Standard range: 2.0-3.0 High-intensity range: 2.5-3.5 Refer to indication-specific guidelines for appropriate target ranges for prosthetic heart valve replacement. Current interpretive data was last revised on 2019. Blood 12/06/2024 9:21 AM CDT 12/06/2024 9:37 AM CDT [facility] Anusha John MD LAB BLOOD ORDERABLES Fi nal Result [facility] [place] [address] from Last 3 Months Insurance [facility] Advance Directives For more information, please contact: [phone] * Full Code (Latest Code Status on File) Date Activated Date Inactivated Comments 06/02/2023 2:41 PM 06/08/2023 4:25 PM Care Teams Surface Room Shop Optician Relationship Specialty Start Date End Date Elida Novoa MD [address] [facility] [address] [address] [place] [address] PCP - General Family Practice 04/25/23 Manjeet John MD [address] [facility] [address] [place] [address] Consulting Physician Interventional Cardiology 06/08/23
--- OUTSIDE RECORDS SUMMARY | 2025-03-03 08:58 | XMS_ITS | Clinical Summary ---
Author Organization [facility] [place] [address] Address [address] [place] [address] Care Team Providers Care Electrocardiograph Operator Name Role Phone Elida Novoa MD Primary Care Provider Manjeet John MD Unavailable [phone] Allergies Active Allergy Reactions Criticality Noted Date [...] Nonischemic cardiomyopathy 04/25/2023 Aortic valve stenosis 04/25/2023 Encounters Date Type Department Care Team Description 12/06/2024 9:15 AM CDT Lab [facility] [address] [place] [address] History of mechanical aortic valve replacement 12/06/2024 Anticoagulation Visit [facility] Cardiology [address] [facility] [address] [place] [id number] Deena Valiente RN from Last 3 Months Surgical History Surgery Date Site/Laterality Comments CARDIAC CATHETERIZATION SECTION X 2 TUBAL LIGATION OTHER SURGICAL HISTORY 07/21/2023 [facility] Medical History Medical History Date Comments CHF (congestive heart failure) (HCC) Asthma Hyperlipidemia Aortic valve stenosis Mitral valve insufficiency Family History Medical History Relation Name Comments Alcohol abuse Father Lung cancer Father Diabetes Maternal Grandfather Heart failure Maternal Grandmother Cancer Mother Heart disease Paternal Grandmother Relation Name Status Comments Father Alive Maternal Grandfather Maternal Grandmother Mother Paternal Grandmother Social History Tobacco Use Types Packs/Day Years Used Date Smoking Tobacco: Every Day Cigarettes Smokeless Tobacco: Never Tobacco Cessation:Ready to Q uit: Not Asked; Counseling Given: Not Answered Comments:Smoking cessation booklet provided [facility] [employer] Answer Date Recorded In the past 12 months has [employer], [employer], or water [employer] threatened to shut off services in your [...] week 06/03/2023 How often do you attend [facility] or latter day services? More than 4 times per year 06/03/2023 Do you belong to any clubs o r organizations such as adventism groups, unions, fraternal or athletic groups, or [...] place to sleep or slept in a detention (including now)? No 06/03/2023 Personal Safety Answer Date Recorded Have you ever been in or are you currently in a harmful physical or emotional relationship or is someone making you feel afraid or unsafe? Denies 07/21/2023 Comments Unknown Sex and Gender Information Value Date Recorded Sex Assigned at Not on file Legal Sex Female 9:23 PM EXTRUDER OPERATOR VERTICAL Gender Identity Not on file Sexual Orientation Not on file Obstetrics History Last Filed Vital Signs Vital Sign Reading Time Taken Comments Blood Pressure 124/60 10/12/2024 10:02 AM EXTRUDER OPERATOR VERTICAL Pulse 94 10/12/2024 10:02 AM EXTRUDER OPERATOR VERTICAL Temperature 36.8 C (98.3 F) 07/21/2023 7:34 AM EXTRUDER OPERATOR VERTICAL Respiratory Rate 16 09/30/2024 11:57 AM EXTRUDER OPERATOR VERTICAL Oxygen Saturation 98% 10/12/2024 10:02 AM EXTRUDER OPERATOR VERTICAL Inhaled Oxygen Concentration - - Weight 53.5 kg (118 lb) 10/12/2024 10:02 AM EXTRUDER OPERATOR VERTICAL Height 165.1 cm (5' 5) 10/12/2024 10:02 AM EXTRUDER OPERATOR VERTICAL Body Mass Index 19.64 10/12/2024 10:02 AM EXTRUDER OPERATOR VERTICAL Plan of Treatment Health Maintenance Due Date Last Done Comments Breast Cancer Screening-Mammogram 1973 Cervical Cancer Screening 1973 Colon Cancer Screening-Colonoscopy 1973 Depression Screening 1973 Hepatitis C Screening 1973 DTaP/Tdap/Td Vaccine (1 - Tdap) 1984 Hepatitis B Screening 1991 Regular Well Visit/Exam 18-64 1991 Pneumococcal vaccine <65 (1 of 2 - PCV) 1992 Zoster Vaccine (1 of 2) 2023 Influenza Vaccine (#1) 2025 Medical Devices Implanted Type Area Captain Assistant Device Identifier Shelf Expiration Date Model / Serial / Lot [employer] Redd eddy-Parada Imr Etlogix 28mm 3d Reduced Curvature [id number] - [id number] - [id number] Implanted:Qty: 1 on 06/02/2023 by Jamari Ellis MD at [facility] N/A: Heart [employer] [id number] 03/15/2028 [id number] / [id number] / [employer] [place] Flexcuff 19mm 17.8mm 1 Digit Gradient Mechanical Leaflet [id number] - [id number] - [id number] Implanted:Qty: 1 on 06/02/2023 by Jamari Ellis MD at [facility] N/A: Heart [employer] [id number] 12/11/2027 [id number] / [id number] / Procedures Procedure Name Priority Date/Time Associated [...] 9:21 AM CDT 12/06/2024 9:[address] [facility] Anusha John MD LAB BLOOD ORDERABLES Fi nal Result [facility], [facility] [address] [facility] Department [place] [address] from Last 3 Months Insurance [facility] Advance Directives For more information, please contact: [phone] * Full Code (Latest Code Status on File) Date Activated Date Inactivated Comments 06/02/2023 2:41 PM 06/08/2023 4:25 PM Care Teams Electrocardiograph Operator Relationship Specialty Start Date End Date Elida Novoa MD [facility] [place] [address] PCP - General Family Practice 04/25/23 Manjeet John MD [address] [place] [address] Consulting Physician Interventional Cardiology 06/08/23
== END 2025-03-03 08:55 | disposition home or self-care (01) ==
LOC: ANHIMG 08:55
PROVIDERS: PCP Family Medicine; Visit Provider Nurse Practitioner Family
DX: Z12.31 Encounter for screening mammogram for malignant neoplasm of breast (principal)
CPT/HCPCS: 77063; 77067